=== PATIENT | female | born 1965 | race Caucasian/White ===

== ENCOUNTER 2025-03-17 06:34 | Inpatient (IN) | payer MEDICAID ==
[~2025-03-17] VITALS: Ht 162.6 cm; Wt 67.2 kg
[~2025-03-17 06:34] MED LIST: BACL20TA PO; CALC-1215 PO; DOCU-28 PO; ESCI10TA PO; GABA300C PO; HYDR-4353 PO; IBUP-1984 PO; MORP30TA60 PO; NARA2.5T10 PO; POLY119P2 PO; SOLI10TA2 PO; TIZA4TAB11 PO
[2025-03-17 07:33] LABS: BASOPHILS # (AUTO) 0.1 X10'3 (0-0.2); BASOPHILS % (AUTO) 1.4 % (0-1); EOSINOPHILS # (AUTO) 0.1 X10'3 (0-0.9); EOSINOPHILS % (AUTO) 1.3 % (0-6); HEMATOCRIT 41.4 % (35.0-45.0); HEMOGLOBIN 13.7 g/dl (12.0-16.0); LYMPHOCYTES # (AUTO) 1.4 X10'3 (1.1-4.8); LYMPHOCYTES % (AUTO) 20.9 % (21-51); MEAN CORPUSCULAR VOLUME 87.9 FL (78-98); MEAN PLATELET VOLUME 8.1 FL (7.4-10.4); MONOCYTES # (AUTO) 0.6 X10'3 (0-0.9); MONOCYTES % (AUTO) 8.3 % (2-12); NEUTROPHILS # (AUTO) 4.7 X10'3 (1.8-7.7); NEUTROPHILS % (AUTO) 68.1 % (42-75); PLATELET COUNT 278 X10'3 (140-440); RED BLOOD COUNT 4.71 X10'6 (4.20-5.60); RED CELL DISTRIBUTION WIDTH 16.1 % (11.5-14.5); WHITE BLOOD COUNT 6.9 X10'3 (4.5-11.0)
[2025-03-17 07:46] LABS: ALANINE AMINOTRANSFERASE 16 U/L (12-78); ALBUMIN 2.7 G/DL (3.4-5.0); ALBUMIN/GLOBULIN RATIO 0.8 (1.1-1.5); ALKALINE PHOSPHATASE 87 IU/L (46-116); ANION GAP 6 (8-16); ASPARTATE AMINO TRANSFERASE 24 U/L (10-37); BLOOD UREA NITROGEN 13 MG/DL (7-18); BUN/CREATININE RATIO 17.8 (10.0-20.0); CALCIUM 8.4 MG/DL (8.5-10.1); CHLORIDE 99 MMOL/L (99-107); CREATININE 0.73 MG/DL (0.40-0.90); GLUCOSE 114 MG/DL (70-104); SODIUM 133 MMOL/L (135-145); TOTAL CARBON DIOXIDE 28.5 MMOL/L (24-32); TOTAL PROTEIN 6.3 G/DL (6.4-8.2); eCRCL 70 ML/MIN; eGFR 81 ML/MIN
[2025-03-17] MEDS: ondansetron/PF 4mg/2ml inj IV ONE (10:07)
[2025-03-17] MEDS: LORazepam 2 mg/ml vial IV ONE (10:07)
[2025-03-17 10:27] LABS: BILIRUBIN,URINE NEGATIVE (Neg); CLARITY,URINE CLEAR (Clear); COLOR,URINE YELLOW (Yellow); GLUCOSE, URINE NEGATIVE (Neg); KETONES,URINE NEGATIVE (Neg); LEUKOCYTE ESTERASE ,URINE NEGATIVE (Neg); NITRITES, URINE NEGATIVE (Neg); OCCULT BLOOD,URINE NEGATIVE (Neg); PROTEIN,URINE 30 mg/dl (Neg)
[2025-03-17 10:28] LABS: UA COLLECTION TYPE URINAL
[2025-03-17 10:33] LABS: BACTERIA,URINE NONE SEEN /HPF (Neg); MUCUS STRANDS NONE SEEN /LPF (Neg); RBC,URINE NONE SEEN /HPF (0-2); SQUAMOUS EPITHELIAL CELL,UR FEW /LPF (FEW); WBC,URINE 0-4 /HPF (0-4)
--- NOTE | 2025-03-17 12:47 | RADIOLOGY REPORT ---
CHEST RADIOGRAPH Indication: weakness Technique: Single frontal view of the chest was obtained COMPARISON: None FINDINGS: Lines and Tubes: None Lungs: Pulmonary vascular congestion Pleura: No effusion. No pneumothorax. Cardiomediastinal contours: Cardiomegaly Bones: Unremarkable IMPRESSION: Pulmonary vascular congestion versus viral pneumonia.
--- NOTE | 2025-03-17 15:15 | ELECTROCARDIOGRAPH REPORT ---
[facility] Test Date: 2025-03-17 Test Time: 15:12:23 Pat Name: MARCELINO LAU Department: [facility]- Patient ID: [id number] Room: [place] [address] Gender: F Bend Sorter: : 1965 Requested By: ROHINI GIRON Order Number: [id number] Reading MD: Dr. Reed Oliveira Measurements Intervals Elsie Rate: 81 P: 66 SC: 132 QRS: 0 QRSD: 87 T: 92 QT: 427 QTc: 496 Interpretive Statements Sinus rhythm Left atrial enlargement RSR' in V1 or V2, probably normal variant Left ventricular hypertrophy Abnormal inferior Q waves Nonspecific T abnormalities, lateral leads Borderline prolonged QT interval Electronically Signed On 03-19-2025 6:35:[address] Reed Oliveira Please click the below link to view image of tracing.
[2025-03-17] MEDS: furosemide 10 MG/1 ML 10ml inj IV ONE (15:16)
[2025-03-17 15:20] LABS: PRO BRAIN NATRIURETIC PEPTIDE 5063 PG/ML (0-125)
[2025-03-17] MEDS: ipratropium/albuterol 3ml nebule NEB ONE (15:34)
[2025-03-17 15:35] VITALS: PULSE 71; PULSE 86; RESP 17; RESP 22; O2SAT 90
--- NOTE | 2025-03-17 16:05 | Physician Documentation ---
History of Present Illness ~ Chief Complaint: See Chief Complaint Stated Complaint: GENERAL ILLNESS Time Seen by MD: 06:54 Mode of Arrival: Ambulatory HPI Patient was brought to the hospital by EMS. She said that she has not been feeling well for a couple of weeks. Generalized weakness dyspnea with exertion she has a lower extremity edema at one point she was concerned that she was infected by parasites. She has an odd affect. She has a history of COPD she has not had axis to an inhaler or nebulizer. Denies fever cough denies chest pain. Medication Reconciliation Allergies: Coded Allergies: No Known Drug Allergies (Unverified Allergy, Unknown, 05/10/15) Discontinued Medications Baclofen (Baclofen), 1 TABLET PO TID, (Reported) Discontinued Reason: patient no longer taking Calcium Carbonate/Vitamin D3 (Calcium + D 600 Mg Tablet), 1 EACH PO BID, (Reported) Discontinued Reason: patient no longer taking Docusate Sodium (Colace), 1 CAP PO HS, (Reported) Discontinued Reason: patient no longer taking Escitalopram Oxalate (Lexapro), 5 MG PO DAILY, (Reported) Discontinued Reason: patient no longer taking Gabapentin (Neurontin), 4 CAP PO TID, (Reported) Discontinued Reason: patient no longer taking Hydrocodone Bit/Acetaminophen ([place] 10-325 Tablet), 1-2 TABLET PO TID PRN PRN for pain, (Reported) Discontinued Reason: patient no longer taking Ibuprofen* (Motrin*), 800 MG PO TIDWM, (Reported) Discontinued Reason: patient no longer taking Morphine Sulfate (Ms Contin), 15 MG PO TID, (Reported) Discontinued Reason: patient no longer taking Naratriptan Hcl (Naratriptan), 2.5 MG PO Q4H PRN for migraine headaches, (Reported) Discontinued Reason: patient no longer taking Polyethylene Glycol 3350 (Miralax), 17 GM PO DAILY, (Reported) Discontinued Reason: patient no longer taking Solifenacin Succinate (Vesicare), 1 TABLET PO DAILY, (Reported) Discontinued Reason: patient no longer taking Tizanidine Hcl (Zanaflex), 4 MG PO HS, (Reported) Discontinued Reason: patient no longer taking Past Medical History Smoking Status: Current every day smoker Physical Exam Vital Signs: Temperature: 97.6, Source: Oral, Heart Rate: 71, Respiratory Rate: 22, BP: 140/113, Pulse Oximetry: 90, Weight: 67.200 Physical Exam General: Awake and Alert, no acute distress. HEENT: Conjunctiva pink, Sclera clear, Mucus Membranes moist. Neck: Supple without masses and tenderness. Resp: Unlabored. She has bibasilar crackles. Heart: Regular Rate and rhythm, normal S1 and S2 without murmur, rub or gallop. Abdomen: Soft and non tender no organomegaly Extremities: No cyanosis,clubbing or 2+ bilateral lower extremity edema there some areas of skin breakdown anterior lower legs that are scabbed over but no signs of infection. The edema symmetrical. No signs of DVT. Skin: Warm and Dry. Neuro: GCS 15; no focal deficits Progress Results/Orders Results/Orders Orders - ROHINI GIRON MD Chest,Single View (03/17/25 12:29) Hs Troponin I W Calculations (03/17/25 14:52) Svn Treatment (03/17/25 14:54) Completed Orders - ROHINI GIRON MD Cbc/Diff (03/17/25 06:56) CMP (03/17/25 06:56) Ondansetron Inj. (Zofran 4mg/2ml Vial) (03/17/25 09:50) Lorazepam Inj (Ativan Inj) (03/17/25 09:50) Ua W/Microscopic, Cult If Ind (03/17/25 10:09) Chest,Single View (03/17/25 12:29) Ipratropium/Albuterol Nebule (Ipratrop/A (03/17/25 14:55) Furosemide Inj (Lasix Inj) (03/17/25 14:55) Electrocardiogram (03/17/25 ) PBNP (03/17/25 07:18) Medications Received in ER Medications (Trade) Dose Ordered Sig/Margaux Route PRN Reason Start Time Stop Time Status Last Admin Dose Admin (Zofran 4mg/2ml vial) 4 mg ONCE ONCE IV 03/17/25 09:50 03/17/25 09:56 DC 03/17/25 10:07 4 MG (Ativan inj) 1 mg ONCE ONCE IV 03/17/25 09:50 03/17/25 09:52 DC 03/17/25 10:07 1 MG (ipratrop/ albuterol 0.5-3(2.5) MG/3ml nebule) 3 ml ONCE ONCE NEB 03/17/25 14:55 03/17/25 14:56 DC 03/17/25 15:34 3 ML (Lasix inj) 40 mg ONCE ONCE IV 03/17/25 14:55 03/17/25 14:56 DC 03/17/25 15:16 40 MG Vital Signs 03/17/25 03/17/25 03/17/25 03/17/25 06:48 08:39 09:27 15:18 Temp 97.6 Pulse 78 86 77 Resp 15 25 15 15 B/P (MAP) 144/98 152/113 (126) 140/113 (122) Pulse Ox 99 97 98 03/17/25 03/17/25 15:35 15:35 Pulse 86 71 Resp 17 22 Pulse Ox 90 90 O2 Delivery Room Air* Room Air* O2 Flow Rate 0 0 FiO2 21 21 Laboratory Tests Test 03/17/25 07:18 03/17/25 10:09 White Blood Count 6.9 Red Blood Count 4.71 Hemoglobin 13.7 Hematocrit 41.4 Mean Corpuscular Volume 87.9 Mean Corpuscular Hemoglobin 29.0 Mean Corpuscular Hemoglobin Concent 33.0 Red Cell Distribution Width 16.1 H Platelet Count 278 Mean Platelet Volume 8.1 Neutrophils (%) (Auto) 68.1 Lymphocytes (%) (Auto) 20.9 L Monocytes (%) (Auto) 8.3 Eosinophils (%) (Auto) 1.3 Basophils (%) (Auto) 1.4 H Neutrophils # (Auto) 4.7 Lymphocytes # (Auto) 1.4 Monocytes # (Auto) 0.6 Eosinophils # (Auto) 0.1 Basophils # (Auto) 0.1 CBC Comment Sodium Level 133 L Potassium Level 4.0 Chloride Level 99 Carbon Dioxide Level 28.5 Anion Gap 6 L Blood Urea Nitrogen 13 Creatinine 0.73 Estimated GFR/1.73 m2 81 BUN/Creatinine Ratio 17.8 Glucose Level 114 H Calcium Level 8.4 L Total Bilirubin 1.0 Aspartate Amino Transf (AST/SGOT) 24 Alanine Aminotransferase (ALT/SGPT) 16 Alkaline Phosphatase 87 Pro-B-Type Natriuretic Peptide 5063 H Total Protein 6.3 L Albumin 2.7 L Globulin 3.6 Albumin/Globulin Ratio 0.8 L Chemistry Comments Urine Specimen Description Urinal Urine Color Yellow Urine Clarity Clear Urine pH 7.0 Urine Specific [place] 1.015 Urine Protein 30 H Urine Glucose (UA) Negative Urine Ketones Negative Urine Occult Blood Negative Urine Nitrite Negative Urine Bilirubin Negative Urine Urobilinogen 1.0 Urine Leukocyte Esterase Negative Urine RBC None seen Urine WBC 0-4 Urine Squamous Epithelial Cells Few Urine Bacteria None seen Urine Mucus None seen Urine Culture Indicated Not ind Volume Urine Centrifuged 10 ml Urine Comment Medical Decision Making Findings EKGs interpreted by me shows a sinus rhythm of 81 beats per minute axis is normal intervals are normal there is signs of LVH no ST elevation or depression. Patient presents with really vague symptoms. CBC CMP were normal chest x-ray showed some pulmonary congestion BNP is significantly elevated troponin is still pending but patient has not had chest pain. She requested and was given a neb treatment. She was given Lasix 40 mg IV. So she appears to be in heart failure. Her EKG shows LVH and she presents hypotensive. She has a history of hypertension does not always take her medications so concern is that she is developing a cardiomyopathy from poorly in his hyper tension. Plan is for diuresis blood pressure control admission. Her blood pressure did improve after the Lasix that is 149/99 further management deferred to hospitalist. Departure Disposition: ADMITTED INPATIENT Admitted to Inpatient Unit: to hospitalist Admission Level of Care: Med/Surg with Tele Impression: Primary Impression: Acute exacerbation of CHF (congestive heart failure) Qualified Codes: I50.33 - Acute on chronic diastolic (congestive) heart failure Additional Impression: Hypertension Qualified Codes: I10 - Essential (primary) hypertension Condition: Stable Referrals: NO PRIMARY CARE PROVIDER (PCP) Education Educated: Patient Educated regarding: diagnosis, treatment, prognosis Signature Scribe Signature: no scribe Attestation: no natyibe ROHINI GIRON MD Mar 17, 2025 16:05
[2025-03-17] MEDS ORDERED: acetaminophen 325mg tablet PO PRN (17:25)
[2025-03-17] MEDS ORDERED: magnesium sulf-water 2g/50mL 50 ML IV PRN (17:25)
[2025-03-17] MEDS ORDERED: potassium Cl 20 mEq SR tablet PO PRN ×2 (17:25)
[2025-03-17] MEDS ORDERED: magnesium Cl slow-release 64mg tablet PO PRN (17:25)
[2025-03-17] MEDS ORDERED: magnesium sulf-water 4G/100mL 100 ML IV PRN (17:25)
[2025-03-17] MEDS ORDERED: potassium Cl 40MEQ/1/2NS 520ml 520 ML IV PRN (17:25)
--- NOTE | 2025-03-17 17:55 | Visit Coding Note ---
Date of Service: Mar 17, 2025 Billing Provider: MAME SCHWARZ MD Common Visit Codes: [id number] INP/OBS CARE (HIGH) MAME SCHWARZ MD Mar 17, 2025 17:55
[2025-03-17] MEDS: K and/or MAG REPLACEMENT MC SCH (20:00)
[2025-03-17] MEDS: docusate sod 100mg capsule PO SCH (20:00)
[2025-03-17] MEDS: heparin, porcine 5000 units/ml vial SQ SCH (20:28)
[2025-03-17] MEDS: HYDROcodone/acetaminophen 5mg/325mg tablet PO PRN (22:08)
--- NOTE | 2025-03-17 22:09 | HISTORY AND PHYSICAL ---
History & Physical Providers to ~ History of Present Illness Reason for Admit\Complaint: Shortness of breath History of Present Illness 59 year old female who lives by herself presented to the ER for evaluation of shortness of breath for several months and is now progressively getting worse to the point that she can not lay flat at night, and can barely do anything . Reports edema of her legs. Denies chest pain palpitations or PND. Allergies: Coded Allergies: No Known Drug Allergies (Unverified Allergy, Unknown, 05/10/15) Home Medications Home Medications Active Past Medical History Past Medical History None Past Surgical History Surgical History Comment Bilateral knee replacement Back surgery Family History Family History: Family history was reviewed; no changes noted. Past Social History Social History Comment Does not drink or do any drugs, lives alone ,smokes 3-4 cigarettes a day Health Maintenance Health Maintenance Patient reports she is not current on her immunizations. ROS ROS All other systems are reviewed and are negative except as mentioned in HPI Exam Vitals: Vital Signs Date Time Temp Pulse Resp B/P (MAP) Pulse Ox O2 Delivery O2 Flow Rate FiO2 03/17/25 21:22 85 03/17/25 20:18 16 147/98 (114) 97 03/17/25 15:35 Room Air* 0 21 03/17/25 06:48 97.6 General: Awake alert cooperative in no acute distress HEENT: Normocephalic atraumatic pupils round reactive to light and accommodation, extraocular movements intact, sclera anicteric, conjunctiva pinkish, moist oral mucosa, no rash or ulcers. Neck: Supple, no JVD, trachea midline, no lymphadenopathy. Chest: Decreased breath sounds with crackles at the bases Cardiovascular: Regular rate rhythm, no murmur gallop or rub. Abdomen: Soft nontender, no organomegaly. Extremities: 2+ pitting edema Central Nervous System: Nonfocal. Moves all four extremities Musculoskeletal: No joint swelling or deformities Skin: Hyperkeratotic skin with superficial ulcer and a scab over Diagnostic Data Last Recorded Lab Results: 03/17/25 0718 03/17/25 0718 Additional Plan 59 years old female presented to the ER for evaluation of shortness of breaths. 1. Congestive heart failure unspecified type: We will check an echocardiogram. Start patient on Lasix. 2. Arthropathy: Patient has had bilateral knee replacements and low back surgery. Address pain control as necessary 3. Left leg wound ; Topical care, request wound care consult and start on empiric abx 4.Code status: She wishes to be DNR Date of Service: Mar 17, 2025 Billing Provider: MAME SCHWARZ MD Common Visit Codes: [id number] INP/OBS CARE (HIGH) MAME SCHWARZ MD Mar 17, 2025 22:09
[2025-03-17 22:30] VITALS: RESP 22; O2SAT 91
[2025-03-18 06:00] VITALS: BP 143/97; PULSE 70; RESP 21; TEMP 98.2; O2SAT 97
[2025-03-18 06:12] LABS: BASOPHILS # (AUTO) 0.1 X10'3 (0-0.2); BASOPHILS % (AUTO) 1.8 % (0-1); EOSINOPHILS # (AUTO) 0.1 X10'3 (0-0.9); EOSINOPHILS % (AUTO) 2.1 % (0-6); HEMATOCRIT 40.3 % (35.0-45.0); HEMOGLOBIN 13.2 g/dl (12.0-16.0); LYMPHOCYTES # (AUTO) 1.9 X10'3 (1.1-4.8); LYMPHOCYTES % (AUTO) 32.5 % (21-51); MEAN CORPUSCULAR HEMOGLOBIN 29.1 PG (27.0-31.0); MEAN CORPUSCULAR HGB CONC 32.8 g/dL (33.0-36.5); MEAN CORPUSCULAR VOLUME 88.5 FL (78-98); MEAN PLATELET VOLUME 8.4 FL (7.4-10.4); MONOCYTES # (AUTO) 0.7 X10'3 (0-0.9); MONOCYTES % (AUTO) 11.5 % (2-12); NEUTROPHILS # (AUTO) 3.1 X10'3 (1.8-7.7); NEUTROPHILS % (AUTO) 52.1 % (42-75); PLATELET COUNT 268 X10'3 (140-440); RED BLOOD COUNT 4.55 X10'6 (4.20-5.60); RED CELL DISTRIBUTION WIDTH 16.3 % (11.5-14.5); WHITE BLOOD COUNT 5.9 X10'3 (4.5-11.0)
[2025-03-18 06:16] LABS: ALBUMIN 2.6 G/DL (3.4-5.0); ANION GAP 8 (8-16); BLOOD UREA NITROGEN 18 MG/DL (7-18); BUN/CREATININE RATIO 21.2 (10.0-20.0); CALCIUM 8.7 MG/DL (8.5-10.1); CHLORIDE 100 MMOL/L (99-107); CREATININE 0.85 MG/DL (0.40-0.90); GLUCOSE 109 MG/DL (70-104); POTASSIUM 4.1 MMOL/L (3.5-5.1); SODIUM 138 MMOL/L (135-145); TOTAL CARBON DIOXIDE 30.4 MMOL/L (24-32); eCRCL 60 ML/MIN; eGFR 68 ML/MIN
[2025-03-18 08:00] VITALS: RESP 21; O2SAT 97
[2025-03-18] MEDS: PERFLUTREN PROTEIN-A MICROSPHR (Optison) 0.22 MG/ML 3ML VIAL IV ONE (08:05)
[2025-03-18] MEDS: furosemide 40mg/4ml inj IV SCH (09:25)
[2025-03-18 11:00] VITALS: BP 144/87; PULSE 64; RESP 18; TEMP 97.5; O2SAT 95
[2025-03-18] MEDS: nicotine 7mg patch - 24hr TD SCH (12:42)
[2025-03-18] MEDS: cephalexin 500mg capsule PO SCH (14:26)
[2025-03-18] MEDS: morphine 2 MG/ML inj. syringe IV PRN (14:26)
--- NOTE | 2025-03-18 14:47 | PROGRESS NOTE ---
Daily Progress Note Providers to CC ~ Antibiotic Timeout Antibiotic Ordered?: Yes Subjective Patient is seen resting comfortably, reports feeling better Objective Vital Signs Date Time Temp Pulse Resp B/P (MAP) Pulse Ox O2 Delivery O2 Flow Rate FiO2 03/18/25 11:00 97.5 64 18 144/87 (106) 95 Room Air 03/17/25 15:35 0 21 Result Diagram: 03/18/25 0518 03/18/25 0518 Awake alert oriented, in NAD HEENT normocephlalic , atrumatic , EOMI Neck Supple, no JVD Chest Clear to auscultation, no wheezes crackles or rhonchi Heart RRR Abdomen soft , nontender, no organomegaly Extremities : 1+ Edema Skin: Healing wound left leg Other Results Medications reviewed Problem\Assessment\Plan 59 Year old female presented to the ER for evaluation of shortness of breath 1. CHF exacerbation unspecified type : Continue IV lasix, add coreg 2. Leg cellulitis : Continue IV antibiotics, 3. Code status Full code. Date of Service: Mar 18, 2025 Billing Provider: MAME SCHWARZ MD Common Visit Codes: [id number] INP/OBS CARE(HIGH) MAME SCHWARZ MD Mar 18, 2025 14:47
[2025-03-18 15:00] VITALS: BP 138/97; PULSE 73; RESP 21; TEMP 97.5; O2SAT 94
[2025-03-18 18:00] VITALS: BP 144/92; PULSE 67; RESP 20; TEMP 97.4; O2SAT 95
--- NOTE | 2025-03-18 18:18 | CARDIOLOGY REPORT ---
APPROVED REPORT EXAM: Comprehensive 2D, Doppler, and color-flow Echocardiogram. Patient Location: 302 Blood Pressure: 143/97 mmHg Heart Rate: 74 bpm Indications Congestive Heart Failure Shortness of Breath Troponin: 172 ProBNP: 5063 FILTER SCREEN CLEANER: Carl Rose MD No Previous ECHO 2D Dimensions LA Diam4.1 cm IVSd 1.0 (0.7-1.1cm) LVDd 5.7 cm PWd 1.0 (0.7-1.1cm) IVSs 1.2 (0.8-1.2cm) LVDs 4.8 (2.5-4.0cm) PWs 1.5 (0.8-1.2cm) LVOT Diameter 1.84 (1.8-2.4cm) LVEF(%) 32.9 (>50%) Ao Asc Diam.2.92 cm IVC 17.16 mmFS (%) 15.8 % SV 52.8 ml CO 3.6 L/min M-Mode Dimensions Left Atrium(MM) 3.92 (2.5-4.0cm) Aortic Root 2.86 (2.2-3.7cm) Aortic Cusp Exc 1.65 (1.5-2.0cm) MV EPSS 1.3 (<0.5cm) Aortic Valve AoV Peak Dami. 116.7 cm/s AoV VTI 16.8 cm AO Peak GR. 5.5 mmHg AO Mean GR. 3 mmHg LVOT VTI 15.12 cm LVOT Peak Dami. 90.0 cm/s EDUARDO(VTI)/BSA 2.40 cm2/m2 EDUARDO (VTI) 2.40 cm2 Mitral Valve MV E Velocity 148.7 cm/s MV Peak Gr. 9 mmHg MV DECEL TIME 216 ms MV A Velocity 67.7 cm/s MV PHT 36 ms E/A Ratio 2.2 MVA (PHT) 6.11 cm2 MV QXiu807.0 cm/s TDI Lateral E' P. V6.15 cm/s E/Lateral E' 24.2 Pulmonary Valve PAEDP13.03 mmHg Tricuspid Valve TR P. Velocity 295 cm/s RAP ESTIMATE 10 mmHg TR Peak Gr. 35 mmHg RVSP 45 mmHg LEFT VENTRICLE Normal LV size and wall thickness. Overall systolic function is moderately decreased. LVEF is 35-40%. RIGHT VENTRICLE Right ventricle is mildly dilated with adequate function. Elevated right heart pressures as noted abo ve. ATRIA Left atrium is mildly dilated. AORTIC VALVE Trileaflet AV appears mildly sclerotic without stenosis. No insufficiency. MITRAL VALVE Mitral valve leaflets are thickened with mild annular calcification. No stenosis. Moderate regurgitat ion. TRICUSPID VALVE The tricuspid valve is normal in structure with moderate eccentric regurgitation septally directed. PULMONIC VALVE The pulmonary valve is normal in structure with trace insufficiency. GREAT VESSELS The aortic root is normal in size. The ascending aorta is normal in size. The IVC is normal in size a nd collapses >50% with inspiration. PERICARDIUM Normal pericardium. No effusion. Ascites is present. Other Information Study Quality: Adequate Conclusion Normal LV size and wall thickness. Overall systolic function is moderately decreased. LVEF is 35-40%. Right ventricle is mildly dilated with adequate function. Elevated right heart pressures with an RVS P of 45 mmHg. Left atrium is mildly dilated. Trileaflet AV appears mildly sclerotic without stenosis. No insufficiency. Mitral valve leaflets are thickened with mild annular calcification. No stenosis. Moderate regurgit ation. The tricuspid valve is normal in structure with moderate eccentric regurgitation septally directed. The pulmonary valve is normal in structure with trace insufficiency. Normal pericardium. No effusion.
[2025-03-18 22:00] VITALS: BP 157/116; PULSE 69; RESP 18; TEMP 97; O2SAT 97
[2025-03-19 02:00] VITALS: BP 149/90; PULSE 74; RESP 20; TEMP 97.6; O2SAT 96
[2025-03-19 05:28] LABS: BASOPHILS # (AUTO) 0.1 X10'3 (0-0.2); BASOPHILS % (AUTO) 2.2 % (0-1); EOSINOPHILS # (AUTO) 0.2 X10'3 (0-0.9); EOSINOPHILS % (AUTO) 3.2 % (0-6); HEMATOCRIT 37.2 % (35.0-45.0); HEMOGLOBIN 12.4 g/dl (12.0-16.0); LYMPHOCYTES # (AUTO) 1.9 X10'3 (1.1-4.8); LYMPHOCYTES % (AUTO) 34.7 % (21-51); MEAN CORPUSCULAR HEMOGLOBIN 29.3 PG (27.0-31.0); MEAN CORPUSCULAR HGB CONC 33.3 g/dL (33.0-36.5); MEAN PLATELET VOLUME 8.3 FL (7.4-10.4); MONOCYTES # (AUTO) 0.7 X10'3 (0-0.9); MONOCYTES % (AUTO) 12.3 % (2-12); NEUTROPHILS # (AUTO) 2.6 X10'3 (1.8-7.7); NEUTROPHILS % (AUTO) 47.6 % (42-75); PLATELET COUNT 243 X10'3 (140-440); RED BLOOD COUNT 4.23 X10'6 (4.20-5.60); RED CELL DISTRIBUTION WIDTH 16.1 % (11.5-14.5); WHITE BLOOD COUNT 5.4 X10'3 (4.5-11.0)
[2025-03-19 05:49] LABS: ALBUMIN 2.4 G/DL (3.4-5.0); ANION GAP 5 (8-16); BLOOD UREA NITROGEN 22 MG/DL (7-18); BUN/CREATININE RATIO 24.4 (10.0-20.0); CALCIUM 8.7 MG/DL (8.5-10.1); CHLORIDE 98 MMOL/L (99-107); GLUCOSE 103 MG/DL (70-104); MAGNESIUM 1.7 MG/DL (1.5-2.4); POTASSIUM 3.8 MMOL/L (3.5-5.1); SODIUM 137 MMOL/L (135-145); TOTAL CARBON DIOXIDE 34.4 MMOL/L (24-32); eCRCL 57 ML/MIN; eGFR 64 ML/MIN
[2025-03-19 06:00] VITALS: BP 144/90; PULSE 70; RESP 18; TEMP 97.6; O2SAT 97
[2025-03-19 12:37] VITALS: RESP 18; O2SAT 97
[2025-03-19 18:00] VITALS: BP 152/96; PULSE 79; RESP 21; TEMP 97.4; O2SAT 98
[2025-03-19] MEDS: diphenhydrAMINE 25 MG/10 ML UD oral solution PO PRN (19:28)
[2025-03-19 20:00] VITALS: RESP 19; O2SAT 96
--- NOTE | 2025-03-19 20:42 | PROGRESS NOTE ---
Daily Progress Note Providers to CC ~ Antibiotic Timeout Antibiotic Ordered?: Yes Subjective Feels better, states she feels scared to go home as she is concerned she will get worse. Lives in a rental house which has mold in it. Patient states no one believes her Objective Vital Signs Date Time Temp Pulse Resp B/P (MAP) Pulse Ox O2 Delivery O2 Flow Rate FiO2 03/19/25 20:00 19 96 Room Air 0.0 21 03/19/25 18:00 97.4 79 152/96 (114) Result Diagram: 03/19/25 0504 03/19/25 0504 Awake alert oriented, in NAD HEENT normocephlalic , atrumatic , EOMI Neck Supple, no JVD Chest Clear to auscultation, no wheezes crackles or rhonchi Heart RRR Abdomen soft , nontender, no organomegaly Extremities : 1+ Edema Skin: Healing wound left leg Other Results Medications reviewed Problem\Assessment\Plan 59 Year old female presented to the ER for evaluation of shortness of breath 1. CHF exacerbation unspecified type : Continue IV lasix, add coreg and lisinopril 2. Leg cellulitis : Continue Keflex 3.Tobacco user:Continue Nicotine patch 4. Code status Full code. 5. GI Prophylaxis: Pepcid 5. Disposition Home in am Date of Service: Mar 19, 2025 Billing Provider: MAME SCHWARZ MD Common Visit Codes: [id number] INP/OBS CARE(HIGH) MAME SCHWARZ MD Mar 19, 2025 20:42
[2025-03-19] MEDS: lisinopril 2.5mg tablet PO SCH (21:24)
[2025-03-19 22:00] VITALS: BP 100/70; PULSE 71; RESP 22; TEMP 97; O2SAT 98
[2025-03-20 06:00] VITALS: BP 161/101; PULSE 82; RESP 16; TEMP 97.2; O2SAT 98
[2025-03-20 07:18] LABS: BASOPHILS # (AUTO) 0.2 X10'3 (0-0.2); BASOPHILS % (AUTO) 2.8 % (0-1); EOSINOPHILS # (AUTO) 0.2 X10'3 (0-0.9); HEMATOCRIT 41.9 % (35.0-45.0); HEMOGLOBIN 13.7 g/dl (12.0-16.0); LYMPHOCYTES # (AUTO) 1.8 X10'3 (1.1-4.8); LYMPHOCYTES % (AUTO) 31.6 % (21-51); MEAN CORPUSCULAR HGB CONC 32.8 g/dL (33.0-36.5); MEAN CORPUSCULAR VOLUME 88.5 FL (78-98); MEAN PLATELET VOLUME 8.2 FL (7.4-10.4); MONOCYTES # (AUTO) 0.8 X10'3 (0-0.9); MONOCYTES % (AUTO) 13.7 % (2-12); NEUTROPHILS # (AUTO) 2.7 X10'3 (1.8-7.7); NEUTROPHILS % (AUTO) 47.9 % (42-75); PLATELET COUNT 281 X10'3 (140-440); RED BLOOD COUNT 4.73 X10'6 (4.20-5.60); RED CELL DISTRIBUTION WIDTH 15.9 % (11.5-14.5); WHITE BLOOD COUNT 5.7 X10'3 (4.5-11.0)
[2025-03-20] MEDS: carVEDilol 3.125mg tablet PO SCH (07:38)
[2025-03-20 07:48] LABS: ALBUMIN 2.7 G/DL (3.4-5.0); ANION GAP 4 (8-16); BLOOD UREA NITROGEN 19 MG/DL (7-18); BUN/CREATININE RATIO 19.4 (10.0-20.0); CHLORIDE 100 MMOL/L (99-107); CREATININE 0.98 MG/DL (0.40-0.90); GLUCOSE 92 MG/DL (70-104); MAGNESIUM 1.7 MG/DL (1.5-2.4); POTASSIUM 4.3 MMOL/L (3.5-5.1); SODIUM 141 MMOL/L (135-145); TOTAL CARBON DIOXIDE 37.5 MMOL/L (24-32); eCRCL 52 ML/MIN; eGFR 58 ML/MIN
[2025-03-20 08:00] VITALS: RESP 18; O2SAT 97
[2025-03-20] MEDS ORDERED: FURO-149 PO (13:19)
[2025-03-20] MEDS ORDERED: CARV-164 PO (13:19)
[2025-03-20] MEDS ORDERED: LISI2.5T14 PO (13:19)
[2025-03-20] MEDS ORDERED: CEPH-585 PO (13:19)
--- NOTE | 2025-03-20 14:36 | DISCHARGE SUMMARY ---
Discharge Summary Providers to CC ~ Discharge Summary Admission Diagnosis: CHF Hospital Course DATE OF ADMISSION: 03/17/2025 DATE OF DISCHARGE: 03/20/2025 Discharge Diagnosis\Comment: Acute on chronic systolic congestive heart failure Cellulitis of the leg Operations\Procedures: Echocardiogram Consultants: None Complications: NONE Condition on DC: Stable New Medications: Furosemide (Lasix) 40 Mg Tablet 40 MG PO DAILY for 30 Days, #30 TAB Carvedilol (Carvedilol) 3.125 Mg Tablet 3.125 MG PO BID for 30 Days, #60 TAB Cephalexin*Monohydrate* (Keflex*) 500 Mg Capsule 500 MG PO Q6H for 5 Days, #20 CAP Lisinopril (Lisinopril) 2.5 Mg Tablet 2.5 MG PO DAILY for 30 Days, #30 TAB Discharge Summary: Reason for admission : 59 year old female presented to the ER for evaluation of shortness of breath. PLEASE REFER TO ADMISSION H&P FOR FURTHER DETAILS HOSPITAL COURSE: Patient was admitted on the monitored floor under hospital course as follows. 1. Acute on chronic systolic congestive heart failure: Patient is started on Lasix, Coreg and lisinopril. Echocardiogram showed an EF of 35-40%. Patient has had a significant clinical improvement. 2.Left leg ulcer/Cellulitis , improved with PO antibiotics. Discharged on PO Keflex 3. Other social issues: Patient is concerned about mold at home and is advised to bring it up with her landlord. Advised to consider changing to a different apartment. Discharge day exam: I examined the patient on the day of discharge. Awake alert oriented, in NAD HEENT normocephlalic , atrumatic , EOMI Neck Supple, no JVD Chest Clear to auscultation, no wheezes crackles or rhonchi Heart RRR Abdomen soft , nontender, no organomegaly Extremities : 1+ Edema Skin: Healing wound left leg Disposition ; Home *Problems/Diagnosis: (1) Acute exacerbation of CHF (congestive heart failure) Status: Acute Total Time Spent on D/C: > 30 Minutes Date of Service: Mar 20, 2025 Billing Provider: MAME SCHWARZ MD Common Visit Codes: [id number]-DDT/OBS DISCH DAY >30min Problem Qualifiers (1) Acute exacerbation of CHF (congestive heart failure): Qualified Codes: I50.33 - Acute on chronic diastolic (congestive) heart failure MAME SCHWARZ MD Mar 20, 2025 14:29
[2025-03-20 15:00] VITALS: BP 157/97; PULSE 75; RESP 18; TEMP 98; O2SAT 97
== END 2025-03-20 16:25 | disposition home or self-care (01) | DRG 194 ==
LOC: ER 06:34 → ED HOLD 17:29 → EDBEDREQ 20:25 → PCU 3S 20:58
PROVIDERS: ADMIT Internal Medicine; ATTEND Internal Medicine
DX: I11.0 Hypertensive heart disease with heart failure (principal); L03.116 Cellulitis of left lower limb; I50.43 Acute on chronic combined systolic (congestive) and diastolic (congestive) heart failure; L97.929 Non-pressure chronic ulcer of unspecified part of left lower leg with unspecified severity; S81.802A Unspecified open wound, left lower leg, initial encounter; X58.XXXA Exposure to other specified factors, initial encounter; Z96.653 Presence of artificial knee joint, bilateral; Z87.891 Personal history of nicotine dependence; Y93.89 Activity, other specified; Y92.89 Other specified places as the place of occurrence of the external cause; Y99.8 Other external cause status
CPT/HCPCS: 36415; 71045; 80048; 80053; 81001; 83735; 83880; 84484; 85025; 87081; 93005; 93306; 94640; 94760; 96372; 96374; 96375; 99291; A4615; A6223; A6250; A6258; A6260; A6446; A6449; G0378; J1644; J1938; J1940; J2060; J2270; J2405; Q0163